=== PATIENT | male | born 1985 | race Two or more races ===

== ENCOUNTER 2018-10-16 15:30 | Emergency (ER) | payer SELFPAY ==
[~2018-10-16] VITALS: Ht 170.2 cm; Wt 89.4 kg
--- NOTE | 2018-10-16 15:35 | NUR ---
BIB [facility] with c/o headache and dizziness. Pt arrives a/o x 4, ambulatory with steady gait. No neuro deficits noted. Pt was triaged and placed in ER waiting room, no open ER beds at this time.
--- NOTE | 2018-10-16 16:16 | NUR ---
Pt ambulatory to room 4b, NAD noted at this time.
[2018-10-16] MEDS ORDERED: IV NORMAL SALINE 1000 ML BAG IV ONE (17:00)
[2018-10-16 17:14] LABS: BASOPHILS # (AUTO) 0.1 K/uL (0.0-8.0); EOSINOPHILS # (AUTO) 0.2 K/uL (0.0-0.7); EOSINOPHILS % (AUTO) 3.5 % (0.0-7.0); HEMATOCRIT 46.3 % (36.7-47.1); LYMPHOCYTES % (AUTO) 33.4 % (20.5-51.5); MEAN CORPUSCULAR HEMOGLOBIN 29.9 uug (23.8-33.4); MEAN CORPUSCULAR HGB CONC 35 g/dL (32.5-36.3); MEAN CORPUSCULAR VOLUME 86.6 fL (73.0-96.2); MONOCYTES # (AUTO) 0.6 K/uL (2.0-10.0); MONOCYTES % (AUTO) 9.4 % (0.0-11.0); NEUTROPHILS # (AUTO) 3.2 K/uL (1.8-8.9); NEUTROPHILS % (AUTO) 52.7 % (38.5-71.5); PLATELET COUNT (AUTO) 305 K/uL (152-348); RED BLOOD CELL COUNT(AUTO) 5.35 MIL/uL (4.06-5.63); WHITE BLOOD COUNT (AUTO) 6.1 K/uL (3.6-10.2)
[2018-10-16 17:32] LABS: CREATININE 0.8 mg/dL (0.6-1.3); POTASSIUM 3.9 mmol/L (3.5-5.1)
--- NOTE | 2018-10-16 17:52 | NUR ---
Patient discharged to home in stable conditon. Written and verbal after care instructions given. Patient verbalizes understanding of instructions. ALL BELONGINGS W/ PT. PT SELF-AMBULATED W/O DIFFICULTY. 20G IV ACCESS IN RAC REMOVED PRIOR TO D/C - INNER CANNULA INTACT.
[2018-10-16 17:53] VITALS: BP 131/78
== END 2018-10-16 17:54 | disposition home or self-care (01) ==
LOC: ER 15:32
DX: R42 Dizziness and giddiness (principal); I10 Essential (primary) hypertension; R11.0 Nausea
CPT/HCPCS: 36415; 85025; 93005; A4663; J7030

== ENCOUNTER 2022-10-10 16:34 | Emergency (ER) | payer MEDICAID ==
[~2022-10-10] VITALS: Ht 180.3 cm; Wt 107.5 kg
--- NOTE | 2022-10-10 17:00 | NUR ---
Patient seen by physician upon arrival.
[2022-10-10] MEDS ORDERED: ASPIRIN 81 MG TAB.CHEW ONE (17:08)
[2022-10-10] MEDS ORDERED: ASPIRIN 81 MG TAB.CHEW PO ONE (17:15)
[2022-10-10 17:16] LABS: MEAN CORPUSCULAR HEMOGLOBIN 29.1 uug (23.8-33.4); MEAN CORPUSCULAR VOLUME 86.7 fL (73.0-96.2); PLATELET COUNT (AUTO) 388 K/uL (152-348)
[2022-10-10 17:30] LABS: CREATININE 0.8 mg/dL (0.6-1.3); POTASSIUM 4.2 mmol/L (3.5-5.1)
[2022-10-10 17:45] LABS: BILIRUBIN,TOTAL 0.5 mg/dL (0.2-1.0); TOTAL PROTEIN, SERUM 8.7 g/dL (6.4-8.2)
--- NOTE | 2022-10-10 18:22 | NUR ---
Pt. updated on care plan by physician
--- NOTE | 2022-10-10 18:23 | NUR ---
HR of 102 97% saturtion on RA., 124/60. RR 17
--- NOTE | 2022-10-10 18:57 | NUR ---
DCD instructions given to pt. who verbalized understanding. Pt. left room stable no c/of pain or any other discomfort.
--- NOTE | 2022-10-10 19:05 | NUR ---
With DCD instructions pt. started complaining of neck pain and requested an MRI at bedside and educated pt. on lab results ekg and negative troponin. Throat examined by md. patient ok to be dcd.
== END 2022-10-10 19:08 | disposition home or self-care (01) ==
LOC: ER 16:36
DX: R07.9 Chest pain, unspecified (principal); F41.9 Anxiety disorder, unspecified
CPT/HCPCS: 36415; 71045; 84443; 84484; 85025; 85610; 93005; A4663